=== PATIENT | female | born 1940 ===

== ENCOUNTER 2017-09-21 12:45 | Inpatient (IN) | payer OTHER ==
[~2017-09-21] VITALS: Ht 165.1 cm; Wt 58.1 kg
[2017-09-27] MEDS ORDERED: SINVASTATIN (14:25)
[2017-09-27] MEDS ORDERED: SYNTHROID75 MCG PO (14:25)
[2017-09-27] MEDS ORDERED: AMBIEN5 MG PO (14:26)
== END 2017-10-04 09:09 | disposition home or self-care (01) | DRG 331 ==
LOC: SURH 10-01 06:15 → O/R 10-01 06:15 → SURG 10-01 07:00 → SURH 10-01 14:56
PROVIDERS: Colon & Rectal Surgery
PROC: 0DJD8ZZ Inspection of Lower Intestinal Tract, Via Natural or Artificial Opening Endoscopic (ICD-10-PCS; 2017-10-01)
PROC: 0DTE4ZZ Resection of Large Intestine, Percutaneous Endoscopic Approach (ICD-10-PCS; principal; 2017-10-01 07:00)
DX: K57.32 Diverticulitis of large intestine without perforation or abscess without bleeding (principal); I11.9 Hypertensive heart disease without heart failure; E03.8 Other specified hypothyroidism

== ENCOUNTER 2018-07-27 07:07 | Day surgery (SDC) | payer OTHER ==
[~2018-07-27 07:07] MED LIST: AMBIEN5 MG PO; SINVASTATIN; SYNTHROID75 MCG PO
== END 2018-07-27 10:30 | disposition home or self-care (01) ==
LOC: AMB-ENDOS 07:07
DX: K62.1 Rectal polyp (principal); K63.5 Polyp of colon